=== PATIENT | female | born 1955 | race Two or more races ===

== ENCOUNTER 2021-08-20 10:12 | Inpatient (IN) | payer MEDICAID, OTHER ==
[~2021-08-20] VITALS: Ht 144.8 cm; Wt 55.0 kg
[2021-08-20] MEDS ORDERED: SODIUM CHLORIDE 0.9% 500 ML IVB ONE (10:45)
[2021-08-20] MEDS ORDERED: PANTOPRAZOLE 40 MG/10 ML VIAL INJ IV ONE (10:45)
[2021-08-20] MEDS ORDERED: MORPHINE SULFATE 4 MG/ML SYR/VIAL IV ONE (10:45)
[2021-08-20] MEDS ORDERED: ONDANSETRON HCL 4 MG/2 ML VIAL IV ONE (10:45)
[2021-08-20 11:25] LABS: Basophils # (auto) 0.1 10 ^3/uL (0-0.2); Basophils % (auto) 1.2 % (0.0-2.0); Eosinophils # (auto) 0 10 ^3/uL (0-0.8); Hemoglobin 11.2 g/dL (12.2-16.2); Monocytes # (auto) 0.4 10 ^3/uL (0-1.3); Red Cell Distribution Width 15.8 % (11.8-14.3)
[2021-08-20 11:27] LABS: Eosinophils % (auto) 0.3 % (0.0-7.0); Hematocrit 34.3 % (36.0-46.0); Lymphocytes # (auto) 2.4 10 ^3/uL (0.4-5.4); Lymphocytes % (auto) 20.9 % (10.0-50.0); Mean Corpuscular Hemoglobin 24.5 pg (28.0-32.0); Mean Corpuscular Hgb Conc. 32.5 g/dL (32.0-36.0); Mean Corpuscular Volume 75.5 fL (80.0-100.0); Monocytes % (auto) 3.5 % (0.0-12.0); Neutrophils # (auto) 8.4 10 ^3/uL (1.6-8.6); Neutrophils % (auto) 74.1 % (37.0-80.0); Nucleated Red Blood Cells % 0.2 %; Red Blood Cells 4.55 10^6/uL (4.0-5.20); White Blood Cell 11.3 10^3/uL (4.4-10.8)
[2021-08-20 11:30] LABS: INR 0.95 (0.9-1.15); Partial Thromboplastin Time 26.1 sec (23.6-33.0)
[2021-08-20 11:34] LABS: Potassium 3.9 mmol/L (3.5-5.1)
[2021-08-20 11:41] LABS: Urine Bacteria NONE SEEN /hpf (None Seen); Urine Blood Negative /uL (Negative); Urine Hyaline Cast FEW /lpf (0 - 2); Urine Mucus FEW (None Seen); Urine Specific Gravity 1.025 (1.001-1.035); Urine WBC 2 /hpf (0 - 5)
[2021-08-20 11:46] LABS: Albumin 3.7 g/dL (3.4-5.0); BUN/Creatinine Ratio 29.6; Bilirubin, Total 0.5 mg/dL (0.2-1.0); Calcium 9.2 mg/dL (8.5-10.1); Magnesium 2.2 mg/dL (1.6-2.6); Total Protein 7.6 g/dL (6.4-8.2)
[2021-08-20 11:54] LABS: Amylase 64 U/L (25-115); Lipase 169 U/L (73-393)
[2021-08-20] MEDS ORDERED: MORPHINE SULFATE 4 MG/ML SYR/VIAL IV PRN (14:15)
[2021-08-20] MEDS ORDERED: ACETAMINOPHEN 325 MG TAB PO PRN ×2 (14:15)
[2021-08-20] MEDS ORDERED: DEXTROSE (50%) 50ML SYRG IV PRN (14:15)
[2021-08-20] MEDS ORDERED: TEMAZEPAM 15 MG CAP PO PRN (14:15)
[2021-08-20] MEDS ORDERED: DOCUSATE SOD 100 MG CAP PO PRN (14:15)
[2021-08-20] MEDS ORDERED: GASTROGRAFIN 30 ML SOL ONE (14:28)
[2021-08-20] MEDS ORDERED: metroNIDAZOLE 500MG/100ML 100 ML IV ONE (14:30)
[2021-08-20] MEDS ORDERED: cefTRIAXone 1GM/50ML D5W 50 ML IV ONE (14:30)
[2021-08-20 14:51] LABS: Alcohol, Urine < 3.0 mg/dL (0-10); Amphetamine Screen, Urine NEGATIVE (NEGATIVE); Barbiturate Scree,Urine NEGATIVE (NEGATIVE); Benzodiazephine Screen, Urine NEGATIVE (NEGATIVE); Cannabinoid Screen, Urine NEGATIVE (NEGATIVE); Cocaine Screen, Urine NEGATIVE (NEGATIVE); Opiate Scree,Urine NEGATIVE (NEGATIVE); Phencyclidine Screen, Urine NEGATIVE (NEGATIVE)
[2021-08-20] MEDS: SODIUM CHLORIDE 0.9% 1,000 ML IV SCH ×2 (15:23→22:27)
[2021-08-20 15:31] LABS: Bilirubin, Direct 0.1 mg/dL (0-0.2)
[2021-08-20 15:34] LABS: Bilirubin, Total 0.5 mg/dL (0.2-1.0)
[2021-08-20 16:03] LABS: INR 0.94 (0.9-1.15)
[2021-08-20] MEDS: InsuLIN REG 1unit/0.01ml Soln (100units/ml) SC SCH ×2 (17:00→22:00)
[2021-08-20] MEDS: ACCU-CHEK COMFORT CURVE STRIP VI SCH ×2 (17:23→22:26)
[2021-08-20 18:05] VITALS: BP 143/90
[2021-08-20] MEDS: PROMETHAZINE HCL 25 MG/ML 1ML IV PRN (18:43)
[2021-08-20 22:00] VITALS: BP 140/74
[2021-08-20] MEDS: metroNIDAZOLE 500MG/100ML 100 ML IV SCH (22:25)
[2021-08-21 05:38] LABS: Basophils # (auto) 0 10 ^3/uL (0-0.2); Basophils % (auto) 0.7 % (0.0-2.0); Eosinophils # (auto) 0 10 ^3/uL (0-0.8); Hemoglobin 9.9 g/dL (12.2-16.2); Lymphocytes # (auto) 2.7 10 ^3/uL (0.4-5.4); Monocytes # (auto) 0.4 10 ^3/uL (0-1.3); Neutrophils # (auto) 2.1 10 ^3/uL (1.6-8.6); Nucleated Red Blood Cells % 0.1 %; Red Cell Distribution Width 15.7 % (11.8-14.3); White Blood Cell 5.3 10^3/uL (4.4-10.8)
[2021-08-21 05:41] LABS: Eosinophils % (auto) 0.8 % (0.0-7.0); Hematocrit 29.9 % (36.0-46.0); Lymphocytes % (auto) 50.6 % (10.0-50.0); Mean Corpuscular Hemoglobin 25.1 pg (28.0-32.0); Mean Corpuscular Hgb Conc. 33.1 g/dL (32.0-36.0); Mean Corpuscular Volume 75.9 fL (80.0-100.0); Monocytes % (auto) 7.7 % (0.0-12.0); Neutrophils % (auto) 40.2 % (37.0-80.0); Red Blood Cells 3.94 10^6/uL (4.0-5.20)
[2021-08-21 05:59] VITALS: BP 136/71
[2021-08-21] MEDS: metroNIDAZOLE 500MG/100ML 100 ML IV SCH ×3 (06:02→21:43)
[2021-08-21] MEDS: InsuLIN REG 1unit/0.01ml Soln (100units/ml) SC SCH ×4 (06:03→22:20)
[2021-08-21] MEDS: SODIUM CHLORIDE 0.9% 1,000 ML IV SCH (06:03)
[2021-08-21] MEDS: ACCU-CHEK COMFORT CURVE STRIP VI SCH ×4 (06:03→22:00)
[2021-08-21 06:05] LABS: Calcium 8.1 mg/dL (8.5-10.1); Potassium 3.6 mmol/L (3.5-5.1)
[2021-08-21 06:12] LABS: Albumin 2.8 g/dL (3.4-5.0); BUN/Creatinine Ratio 22.7; Bilirubin, Total 0.4 mg/dL (0.2-1.0)
[2021-08-21 09:00] VITALS: BP 138/75
[2021-08-21] MEDS: cefTRIAXone 1GM/50ML D5W 50 ML IV SCH (09:00)
[2021-08-21] MEDS ORDERED: ENOXAPARIN SOD 40 MG/0.4 ML SYRINGE SC SCH (10:00)
[2021-08-21] MEDS: PANTOPRAZOLE 40 MG TAB PO SCH ×2 (10:45→21:43)
[2021-08-21] MEDS ORDERED: GOLYTELY 4L KIT PO ONE (10:45)
[2021-08-21] MEDS: SUCRALFATE 1 GM/10 ML ORAL SUSP PO SCH ×3 (11:30→21:43)
[2021-08-21 13:00] VITALS: BP 152/83
[2021-08-21] MEDS: D5W/SOD CHL 0.45%/KCL 20MEQ 1,000 ML IV SCH (15:15)
[2021-08-21 16:41] VITALS: BP 172/87
[2021-08-21] MEDS ORDERED: [UNRECOGNIZED DRUG - CODE] OP (17:27)
[2021-08-21] MEDS ORDERED: BENA40TA8 PO (17:27)
[2021-08-21] MEDS ORDERED: LATA0.0020 OP (17:27)
[2021-08-21] MEDS ORDERED: METF-370 PO (17:36)
[2021-08-21] MEDS ORDERED: AMIT25TA12 PO (17:36)
[2021-08-21] MEDS ORDERED: METO5TAB2 PO (17:36)
[2021-08-21] MEDS ORDERED: GLIP2.5T28 PO (17:36)
[2021-08-21] MEDS ORDERED: HYDR50TA32 PO (17:36)
[2021-08-21] MEDS ORDERED: MECL25TA18 PO (17:36)
[2021-08-21] MEDS ORDERED: OMEP20TA PO (17:36)
[2021-08-21] MEDS ORDERED: AMLO-489 PO (17:36)
[2021-08-21] MEDS: HYDROcodone-ACET 5/325MG TAB PO PRN (21:44)
[2021-08-21 22:00] VITALS: BP 178/75
[2021-08-21] MEDS: LATANOPROST 0.005 % OPTH(EYE) SOL 2.5ML OP SCH (22:00)
[2021-08-22 05:00] VITALS: BP 143/76
[2021-08-22] MEDS: metroNIDAZOLE 500MG/100ML 100 ML IV SCH ×3 (06:08→22:17)
[2021-08-22] MEDS: SUCRALFATE 1 GM/10 ML ORAL SUSP PO SCH ×4 (06:11→22:50)
[2021-08-22] MEDS: InsuLIN REG 1unit/0.01ml Soln (100units/ml) SC SCH ×4 (06:46→22:00)
[2021-08-22] MEDS: ACCU-CHEK COMFORT CURVE STRIP VI SCH ×4 (06:48→22:17)
[2021-08-22] MEDS: TIMOLOL MAL 0.5% OPTH(EYE) SOL 5ML OP SCH (08:00)
[2021-08-22] MEDS ORDERED: LIDOCAINE VISCOUS 2% 15ML UD ONE (08:23)
[2021-08-22] MEDS ORDERED: diphenhdrAMINE HCL 50 MG/1 ML VL ONE (08:23)
[2021-08-22] MEDS ORDERED: SODIUM CHLORIDE LOCK 10 ML ONE (08:24)
[2021-08-22] MEDS: MIDAZOLAM HCL 5 MG/ML-1ML VIAL ONE ×3 (08:46→08:59)
[2021-08-22] MEDS: fentaNYL CITRATE 100 MCG/2 ML VL ONE ×3 (08:46→08:59)
[2021-08-22 09:00] VITALS: BP 153/74
[2021-08-22] MEDS: PROMETHAZINE HCL 25 MG/ML 1ML IV PRN (10:02)
[2021-08-22] MEDS ORDERED: amLODIPine BESYLATE 5 MG TAB PO ONE (10:30)
[2021-08-22] MEDS: PANTOPRAZOLE 40 MG TAB PO SCH ×2 (11:06→22:15)
[2021-08-22] MEDS: cefTRIAXone 1GM/50ML D5W 50 ML IV SCH (11:06)
[2021-08-22] MEDS: D5W/SOD CHL 0.45%/KCL 20MEQ 1,000 ML IV SCH ×2 (11:15→19:59)
[2021-08-22 12:51] VITALS: BP 155/77
[2021-08-22 17:00] VITALS: BP 145/66
[2021-08-22] MEDS: HYDROcodone-ACET 5/325MG TAB PO PRN (19:59)
[2021-08-22] MEDS ORDERED: ALPR0.5T7 PO (20:22)
[2021-08-22] MEDS ORDERED: ALPRAZolam 0.25 MG TAB PO ONE (20:45)
[2021-08-22 22:00] VITALS: BP 155/84
[2021-08-22] MEDS: LATANOPROST 0.005 % OPTH(EYE) SOL 2.5ML OP SCH (22:16)
[2021-08-23 05:00] VITALS: BP 130/72
[2021-08-23 05:28] LABS: Basophils # (auto) 0 10 ^3/uL (0-0.2); Eosinophils # (auto) 0.1 10 ^3/uL (0-0.8); Lymphocytes # (auto) 3.6 10 ^3/uL (0.4-5.4); Mean Corpuscular Hgb Conc. 33.5 g/dL (32.0-36.0); Nucleated Red Blood Cells % 0.1 %
[2021-08-23 05:30] LABS: Basophils % (auto) 0.7 % (0.0-2.0); Eosinophils % (auto) 2.1 % (0.0-7.0); Hematocrit 32.3 % (36.0-46.0); Hemoglobin 10.8 g/dL (12.2-16.2); Mean Corpuscular Hemoglobin 25.3 pg (28.0-32.0); Mean Corpuscular Volume 75.6 fL (80.0-100.0); Monocytes # (auto) 0.5 10 ^3/uL (0-1.3); Monocytes % (auto) 7.6 % (0.0-12.0); Neutrophils # (auto) 1.8 10 ^3/uL (1.6-8.6); Neutrophils % (auto) 30.4 % (37.0-80.0); Red Blood Cells 4.28 10^6/uL (4.0-5.20); Red Cell Distribution Width 15.7 % (11.8-14.3)
[2021-08-23 05:31] LABS: Lymphocytes % (auto) 59.2 % (10.0-50.0)
[2021-08-23] MEDS: metroNIDAZOLE 500MG/100ML 100 ML IV SCH ×2 (05:59→14:00)
[2021-08-23] MEDS: InsuLIN REG 1unit/0.01ml Soln (100units/ml) SC SCH ×2 (07:00→11:30)
[2021-08-23] MEDS: SUCRALFATE 1 GM/10 ML ORAL SUSP PO SCH ×2 (07:13→11:30)
[2021-08-23] MEDS: ACCU-CHEK COMFORT CURVE STRIP VI SCH ×2 (07:14→11:30)
[2021-08-23 09:00] VITALS: BP 146/61
[2021-08-23] MEDS: cefTRIAXone 1GM/50ML D5W 50 ML IV SCH (09:36)
[2021-08-23] MEDS: TIMOLOL MAL 0.5% OPTH(EYE) SOL 5ML OP SCH (09:36)
[2021-08-23] MEDS: PANTOPRAZOLE 40 MG TAB PO SCH (09:36)
[2021-08-23] MEDS ORDERED: amLODIPine BESYLATE 5 MG TAB PO SCH (10:00)
[2021-08-23 13:00] VITALS: BP 175/88
== END 2021-08-23 15:38 | disposition home or self-care (01) | DRG 241 ==
LOC: ER 10:12 → OVERFLOW 14:15 → WEST WING 17:38
PROVIDERS: ADMIT Registered Nurse; ATTEND Internal Medicine
PROC: 0DB68ZX Excision of Stomach, Via Natural or Artificial Opening Endoscopic, Diagnostic (ICD-10-PCS; principal; 2021-08-22 08:42)
PROC: 0DJD8ZZ Inspection of Lower Intestinal Tract, Via Natural or Artificial Opening Endoscopic (ICD-10-PCS; 2021-08-22 08:42)
DX: K29.70 Gastritis, unspecified, without bleeding (principal); E11.22 Type 2 diabetes mellitus with diabetic chronic kidney disease; K76.0 Fatty (change of) liver, not elsewhere classified; D50.9 Iron deficiency anemia, unspecified; D18.03 Hemangioma of intra-abdominal structures; I12.9 Hypertensive chronic kidney disease with stage 1 through stage 4 chronic kidney disease, or unspecified chronic kidney disease; K52.9 Noninfective gastroenteritis and colitis, unspecified; K57.30 Diverticulosis of large intestine without perforation or abscess without bleeding; R80.9 Proteinuria, unspecified; Z20.822 Contact with and (suspected) exposure to COVID-19; N18.31 Chronic kidney disease, stage 3a; N39.0 Urinary tract infection, site not specified; Z83.3 Family history of diabetes mellitus; Z85.038 Personal history of other malignant neoplasm of large intestine; Z87.19 Personal history of other diseases of the digestive system; Z90.710 Acquired absence of both cervix and uterus
CPT/HCPCS: 36415; 43235; 45378; 71045; 74176; 74177; 76705; 80053; 80061; 80307; 81001; 82150; 82247; 82248; 82378; 82962; 83036; 83690; 83735; 84132; 85025; 85610; 85730; 93005; 96361; 96374; 96375; C9113; G0378; J0696; J1815; J2250; J2405; J3490

== ENCOUNTER 2021-12-11 15:46 | Inpatient (IN) | payer MEDICAID, OTHER ==
[~2021-12-11] VITALS: Ht 142.2 cm; Wt 58.0 kg
[~2021-12-11 15:46] MED LIST: ALPR0.5T7 PO; AMLO-489 PO; BENA40TA8 PO; GLIP2.5T28 PO; HYDR50TA32 PO; LATA0.0020 OP; OMEP20TA PO; [UNRECOGNIZED DRUG - CODE] OP
[2021-12-11 16:31] LABS: Basophils # (auto) 0.1 10 ^3/uL (0-0.2); Eosinophils # (auto) 0.1 10 ^3/uL (0-0.8); Eosinophils % (auto) 0.9 % (0.0-7.0); Lymphocytes # (auto) 1.7 10 ^3/uL (0.4-5.4); Lymphocytes % (auto) 28.6 % (10.0-50.0); Mean Corpuscular Hemoglobin 29.5 pg (28.0-32.0); Mean Corpuscular Hgb Conc. 33.3 g/dL (32.0-36.0); Mean Corpuscular Volume 88.6 fL (80.0-100.0); Monocytes # (auto) 0.5 10 ^3/uL (0-1.3); Monocytes % (auto) 7.7 % (0.0-12.0); Neutrophils # (auto) 3.7 10 ^3/uL (1.6-8.6); Neutrophils % (auto) 61.8 % (37.0-80.0); Nucleated Red Blood Cells % 0.1 %; Red Blood Cells 5.08 10^6/uL (4.0-5.20); Red Cell Distribution Width 13.3 % (11.8-14.3)
[2021-12-11 16:48] LABS: Albumin 4.2 g/dL (3.4-5.0); Calcium 9.2 mg/dL (8.5-10.1); Magnesium 2.3 mg/dL (1.6-2.6); Potassium 3.5 mmol/L (3.5-5.1)
[2021-12-11 16:52] LABS: BUN/Creatinine Ratio 13.8; Bilirubin, Total 0.6 mg/dL (0.2-1.0); Total Protein 7.5 g/dL (6.4-8.2)
[2021-12-11] MEDS ORDERED: ASPirin 81 mg TAB PO ONE (20:00)
[2021-12-11 23:54] LABS: Urine Bacteria NONE SEEN /hpf (None Seen); Urine Blood Negative /uL (Negative); Urine Mucus FEW (None Seen); Urine Specific Gravity 1.038 (1.001-1.035); Urine WBC 11 /hpf (0 - 5)
[2021-12-12 02:00] VITALS: BP 108/70
[2021-12-12] MEDS ORDERED: ZOLPIDEM TARTRATE 5 MG TAB PO PRN (02:00)
[2021-12-12] MEDS ORDERED: NITROGLYCERIN 0.4 MG SL TAB SL PRN ×2 (02:00)
[2021-12-12] MEDS ORDERED: ACETAMINOPHEN 325 MG TAB PO PRN (02:00)
[2021-12-12] MEDS ORDERED: MORPHINE SULFATE INJ 2 MG/ml SYRG IV PRN (02:00)
[2021-12-12] MEDS ORDERED: ONDANSETRON HCL 4 MG/2 ML VIAL IV PRN (02:00)
[2021-12-12] MEDS: SODIUM CHLORIDE 0.9% 1,000 ML IV SCH ×2 (02:30→03:30)
[2021-12-12 07:38] LABS: Basophils # (auto) 0 10 ^3/uL (0-0.2); Basophils % (auto) 0.8 % (0.0-2.0); Eosinophils # (auto) 0.1 10 ^3/uL (0-0.8); Hemoglobin 14.9 g/dL (12.2-16.2); Lymphocytes # (auto) 1.3 10 ^3/uL (0.4-5.4); Lymphocytes % (auto) 22.4 % (10.0-50.0); Mean Corpuscular Hemoglobin 30.6 pg (28.0-32.0); Mean Corpuscular Hgb Conc. 34.7 g/dL (32.0-36.0); Mean Corpuscular Volume 88.2 fL (80.0-100.0); Monocytes # (auto) 0.5 10 ^3/uL (0-1.3); Monocytes % (auto) 8.3 % (0.0-12.0); Neutrophils % (auto) 67.5 % (37.0-80.0); Red Blood Cells 4.87 10^6/uL (4.0-5.20); Red Cell Distribution Width 13.3 % (11.8-14.3); White Blood Cell 5.9 10^3/uL (4.4-10.8)
[2021-12-12 07:41] LABS: BUN/Creatinine Ratio 12.3; Calcium 8.8 mg/dL (8.5-10.1); Magnesium 2.2 mg/dL (1.6-2.6); Potassium 3.5 mmol/L (3.5-5.1)
[2021-12-12 08:11] VITALS: BP 148/74
[2021-12-12] MEDS: LORazepam 0.5 MG TAB PO PRN ×2 (09:01→21:56)
[2021-12-12] MEDS: amLODIPine BESYLATE 5 MG TAB PO SCH (09:01)
[2021-12-12] MEDS: ASPirin 81 mg TAB PO SCH (09:01)
[2021-12-12] MEDS: DOCUSATE SOD 100 MG CAP PO SCH (09:02)
[2021-12-12] MEDS ORDERED: ENOXAPARIN SOD 60 MG/0.6 ML SYRINGE SC SCH (10:00)
[2021-12-12] MEDS ORDERED: CLOPIDOGREL BISULFATE 75 MG TAB PO SCH (10:00)
[2021-12-12] MEDS ORDERED: LISINOPRIL 10 MG TAB PO SCH (10:00)
[2021-12-12] MEDS: BENAZEPRIL HCL 10 MG TAB PO SCH (10:00)
[2021-12-12] MEDS: METOPROLOL TARTRATE 25 MG TAB PO SCH ×2 (10:00→21:57)
[2021-12-12] MEDS ORDERED: ATORVASTATIN 20 MG TAB PO SCH ×3 (10:45→22:00)
[2021-12-12] MEDS: PANTOPRAZOLE 40 MG TAB PO SCH (11:36)
[2021-12-12 12:00] VITALS: BP 120/60
[2021-12-12] MEDS ORDERED: DEXTROSE (50%) 50ML SYRG IV PRN (13:00)
[2021-12-12 17:00] VITALS: BP 129/44
[2021-12-12] MEDS: InsuLIN REG 1unit/0.01ml Soln (100units/ml) SC SCH ×2 (17:00→21:39)
[2021-12-12] MEDS: ACCU-CHEK COMFORT CURVE STRIP VI SCH ×2 (17:17→21:39)
[2021-12-12 20:00] VITALS: BP 108/70
[2021-12-12 22:00] VITALS: BP 108/70
[2021-12-13 05:00] VITALS: BP 120/56
[2021-12-13] MEDS: InsuLIN REG 1unit/0.01ml Soln (100units/ml) SC SCH ×2 (06:39→11:30)
[2021-12-13] MEDS: ACCU-CHEK COMFORT CURVE STRIP VI SCH ×2 (06:39→12:30)
[2021-12-13 08:00] VITALS: BP 122/68
[2021-12-13 09:00] VITALS: BP 99/42
[2021-12-13] MEDS: LORazepam 0.5 MG TAB PO PRN (09:12)
[2021-12-13] MEDS: ASPirin 81 mg TAB PO SCH (09:44)
[2021-12-13] MEDS: DOCUSATE SOD 100 MG CAP PO SCH (09:45)
[2021-12-13] MEDS: PANTOPRAZOLE 40 MG TAB PO SCH (09:45)
[2021-12-13] MEDS ORDERED: ENOXAPARIN SOD 40 MG/0.4 ML SYRINGE SC SCH (10:00)
[2021-12-13] MEDS: amLODIPine BESYLATE 5 MG TAB PO SCH (10:00)
[2021-12-13] MEDS: BENAZEPRIL HCL 10 MG TAB PO SCH (10:00)
[2021-12-13] MEDS: METOPROLOL TARTRATE 25 MG TAB PO SCH (10:00)
[2021-12-13] MEDS ORDERED: AML5T PO (12:42)
[2021-12-13] MEDS ORDERED: ASPI-325 PO (12:42)
[2021-12-13] MEDS ORDERED: MET25T PO (12:42)
[2021-12-13 13:00] VITALS: BP 105/47
[2021-12-13 15:37] VITALS: BP 99/42
[2021-12-13 17:00] VITALS: BP 95/57
== END 2021-12-13 17:50 | disposition home or self-care (01) | DRG 198 ==
LOC: ER 15:46 → TELE 12-12 01:50 → TELE-CENTR 12-12 07:42 → TELE 12-12 14:54 → TELE-CENTR 12-12 14:59
PROVIDERS: ADMIT Hospitalist; ATTEND Family Medicine
DX: I20.9 Angina pectoris, unspecified (principal); E11.65 Type 2 diabetes mellitus with hyperglycemia; E66.9 Obesity, unspecified; J98.11 Atelectasis; F41.9 Anxiety disorder, unspecified; Z20.822 Contact with and (suspected) exposure to COVID-19; R74.8 Abnormal levels of other serum enzymes; I10 Essential (primary) hypertension; Z79.899 Other long term (current) drug therapy; Z82.49 Family history of ischemic heart disease and other diseases of the circulatory system; Z83.3 Family history of diabetes mellitus; Z90.49 Acquired absence of other specified parts of digestive tract; Z90.710 Acquired absence of both cervix and uterus; Z87.19 Personal history of other diseases of the digestive system; Z79.82 Long term (current) use of aspirin; Z68.27 Body mass index [BMI] 27.0-27.9, adult; Z79.84 Long term (current) use of oral hypoglycemic drugs
CPT/HCPCS: 36415; 71045; 80048; 80053; 80061; 81001; 82962; 83735; 83880; 84484; 85025; 93005; 93306; 96360; G0378

== ENCOUNTER 2022-06-06 16:46 | Emergency (ER) | payer MEDICAID ==
[~2022-06-06] VITALS: Ht 147.3 cm; Wt 59.5 kg
[~2022-06-06 16:46] MED LIST changes: +AML5T PO; -AMLO-489 PO; +ASPI-325 PO; -BENA40TA8 PO; +MET25T PO
[2022-06-06 17:23] LABS: Basophils # (auto) 0.1 10 ^3/uL (0-0.2); Basophils % (auto) 1.3 % (0.0-2.0); Eosinophils # (auto) 0.1 10 ^3/uL (0-0.8); Eosinophils % (auto) 1.5 % (0.0-7.0); Hematocrit 43.1 % (36.0-46.0); Lymphocytes # (auto) 2.7 10 ^3/uL (0.4-5.4); Lymphocytes % (auto) 37.6 % (10.0-50.0); Mean Corpuscular Hemoglobin 31.3 pg (28.0-32.0); Mean Corpuscular Hgb Conc. 34.8 g/dL (32.0-36.0); Mean Corpuscular Volume 89.9 fL (80.0-100.0); Monocytes # (auto) 0.5 10 ^3/uL (0-1.3); Monocytes % (auto) 7.4 % (0.0-12.0); Neutrophils # (auto) 3.8 10 ^3/uL (1.6-8.6); Neutrophils % (auto) 52.2 % (37.0-80.0); Nucleated Red Blood Cells % 0.4 %; Red Cell Distribution Width 13.1 % (11.8-14.3); White Blood Cell 7.3 10^3/uL (4.4-10.8)
[2022-06-06 17:40] LABS: Albumin 4.5 g/dL (3.4-5.0); Calcium 9.7 mg/dL (8.5-10.1); Potassium 4.3 mmol/L (3.5-5.1)
[2022-06-06 17:43] LABS: BUN/Creatinine Ratio 15.6; Bilirubin, Total 0.5 mg/dL (0.2-1.0); Total Protein 7.4 g/dL (6.4-8.2)
[2022-06-06 17:58] LABS: Urine Bacteria NONE SEEN /hpf (None Seen); Urine Blood Negative /uL (Negative); Urine Specific Gravity 1.008 (1.001-1.035); Urine WBC 5 /hpf (0 - 5)
[2022-06-06 22:21] VITALS: BP 140/73
== END 2022-06-06 22:23 | disposition home or self-care (01) ==
LOC: ER 16:47
DX: R07.89 Other chest pain (principal); I10 Essential (primary) hypertension; R42 Dizziness and giddiness; Z90.49 Acquired absence of other specified parts of digestive tract; Z90.710 Acquired absence of both cervix and uterus
CPT/HCPCS: 36415; 71045; 80053; 81001; 84484; 85025; 93005

== ENCOUNTER 2023-02-20 11:43 | Emergency (ER) | payer MEDICAID ==
[~2023-02-20] VITALS: Ht 147.3 cm; Wt 59.1 kg
[~2023-02-20 11:43] MED LIST changes: -GLIP2.5T28 PO; +GLIP2.5T9 PO
[2023-02-20 11:54] VITALS: BP 140/76; PULSE 83; RESP 16; TEMP 98.2; O2SAT 98
[2023-02-20] MEDS ORDERED: IBUPROFEN 800 MG TAB PO ONE (14:45)
[2023-02-20] MEDS ORDERED: IBUP-1455 PO (14:54)
== END 2023-02-20 15:04 | disposition home or self-care (01) ==
LOC: ER 11:43
DX: S90.121A Contusion of right lesser toe(s) without damage to nail, initial encounter (principal); I10 Essential (primary) hypertension; Z90.49 Acquired absence of other specified parts of digestive tract; Z90.710 Acquired absence of both cervix and uterus; Z79.1 Long term (current) use of non-steroidal anti-inflammatories (NSAID); Z79.82 Long term (current) use of aspirin; Z79.899 Other long term (current) drug therapy; X58.XXXA Exposure to other specified factors, initial encounter; Y93.89 Activity, other specified; Y92.89 Other specified places as the place of occurrence of the external cause; Y99.8 Other external cause status
CPT/HCPCS: 73660

== ENCOUNTER → 2024-11-30 | Day surgery (SDC) | payer MEDICAID ==
[2024-11-28 13:47] LABS: Basophils # (auto) 0.1 10 ^3/uL (0-0.2); Eosinophils # (auto) 0.1 10 ^3/uL (0-0.8); Eosinophils % (auto) 0.8 % (0.0-7.0); Hematocrit 42.4 % (36.0-46.0); Hemoglobin 14.5 g/dL (12.2-16.2); Lymphocytes # (auto) 1.7 10 ^3/uL (0.4-5.4); Lymphocytes % (auto) 22.1 % (10.0-50.0); Mean Corpuscular Hemoglobin 30.8 pg (28.0-32.0); Mean Corpuscular Hgb Conc. 34.2 g/dL (32.0-36.0); Mean Corpuscular Volume 89.8 fL (80.0-100.0); Monocytes # (auto) 0.6 10 ^3/uL (0-1.3); Monocytes % (auto) 7.3 % (0.0-12.0); Neutrophils # (auto) 5.3 10 ^3/uL (1.6-8.6); Neutrophils % (auto) 68.8 % (37.0-80.0); Platelet Count (auto) 201 10^3/uL (140-450); Red Blood Cells 4.72 10^6/uL (4.0-5.20); Red Cell Distribution Width 13.7 % (11.8-14.3); White Blood Cell 7.8 10^3/uL (4.4-10.8)
[2024-11-28 14:02] LABS: INR 1.01 (0.9-1.15); Partial Thromboplastin Time 27.7 SEC (24.5-34.5); Prothrombin Time 10.7 sec (9.3-11.8)
[2024-11-28 14:10] LABS: Alanine Aminotransferase 19 U/L (7-40); Alkaline Phosphatase 90 U/L (46-116); Anion Gap 7 (5-15); Aspartate Aminotransferase 22 U/L (<34); BUN/Creatinine Ratio 16.5 (10.0-20.0); Bilirubin, Total 0.5 mg/dL (0.2-1.0); Blood Urea Nitrogen 13 mg/dL (9-23); Calcium 10.3 mg/dL (8.7-10.4); Carbon Dioxide 29 mmol/L (20-31); Chloride 105 mmol/L (98-107); Glucose 102 mg/dL (74-106); Potassium 4.3 mmol/L (3.5-5.1); Sodium 141 mmol/L (136-145); Total Protein 7.3 g/dL (5.7-8.2)
[2024-11-28 14:16] LABS: Albumin 4.9 g/dL (3.2-4.8)
[2024-11-28 19:12] LABS: Urine Bacteria None Seen /hpf (None Seen)
[2024-11-28 19:23] LABS: Urine Blood Negative /uL (Negative); Urine Clarity Clear (Clear); Urine Color Colorless (Yellow); Urine Protein, UAD Negative (Negative); Urine Specific Gravity 1.004 (1.001-1.035); Urine Squamous Epithelial Cell FEW /hpf (<5); Urine Urobilinogen Normal (Negative); Urine WBC < 1 /HPF (0-5); Urine pH 6.5 (5.0-9.0)
[~2024-11-30] VITALS: Ht 147.3 cm; Wt 53.1 kg
[~2024-11-30] MED LIST changes: +ALBUAER3 IN; -ALPR0.5T7 PO; -AML5T PO; +BACL20TA PO; +BECL80AE11 IN; +ESCI10TA PO; +FAMO20TA10 GT; -GLIP2.5T9 PO; -HYDR50TA32 PO; -LATA0.0020 OP; +MAGN400T40 OR; +PROPOFOL 10 MG/ML 20 ML IV ONE; +TRAZ-228 PO; -[UNRECOGNIZED DRUG - CODE] OP; +fentaNYL CITRATE 100 MCG/2 ML VL ONE
--- NOTE | 2024-11-30 09:11 | DVHHP2 ---
GI H&P Pre-Op Assessment Date: 11/30/24 Chief complaint: Epigastric pain HPI: per clinic note Past medical history: per clinic note Past surgical history: per clinic note Family history: per clinic note Physical exam: General: NAD, AAOX3 HEENT: PERRL, no scleral icterus, normal hearing, gums without lesions or b leeding, oropharynx clear without erythema or exudate. Neck: Supple without enlargement of the thyroid, or lymphadenopathy. Chest: Normal size and shape, no tenderness, lung rodas clear to auscultation and percussion, nonlabored breathing. Heart: RRR, no murmur Abdomen: non-distended, no tenderness to palpation, +BS, no hepatosplenomegaly Extremities: no edema Neurological: CN II-XII intact, sensation intact in all extremities, 5+ strength in all extremities Skin: No rashes, No jaundice Assessment: - Epigastric pain Plan: - EGD - Risks (bleeding, infection, perforation, reaction to sedation medications and cardiopulmonary arrest) and benefit of the procedure were explained to patient. Patient agrees to undergo the procedure. MYA CARRIZALES MD Nov 30, 2024 09:11
[2024-11-30 09:12] VITALS: PULSE 84; RESP 12; TEMP 97.5; O2SAT 92
--- NOTE | 2024-11-30 09:12 | DVHOP2 ---
Operative Report DATE OF OPERATION: 11/30/24 PROCEDURE: Upper Endoscopy. PREOPERATIVE INDICATION: The patient is a 64 -year-old female undergoing endoscopy for epigastric pain. POSTOPERATIVE DIAGNOSES: 1. Slight gastritis PROCEDURE PERFORMED BY: Joey Bright SCOPE: Olympus videoendoscope. ASA CLASS: 3 PREOPERATIVE MEDICATIONS: MAC with Dr White PROCEDURE IN DETAIL: After obtaining an informed consent, the patient was placed on left lateral decubitus position. The patient was then sedated with the above medications. A bite block was placed between her teeth. The endoscope was then passed through the oropharynx, into the esophagus, and through the stomach and pylorus up to the second and third part of the duodenum. The duodenum was normal appearance. There was slight gastritis. Gastric biopsies were obtained using cold forceps. The GE junction was normal appearance at 32 cm. The esophagus was normal in appearance. The endoscope was then withdrawn. The patient tolerated the procedure well without difficulty. COMPLICATIONS : None SPECIMENS: Gastric biopsies DISPOSITION: D/C to home PLAN: 1. Await for biopsy result 2. Continue with omeprazole JOEY BRIGHT MD Nov 30, 2024 09:12
--- NOTE | 2024-11-30 09:13 | DVHDS2 ---
Physician Discharge Progress N Final Diagnosis: Gastritis Operations or Procedures: Operations or Procedures EGD with biopsy Condition on Discharge: Good Disposition: Home Discharge Instructions: Diet: Regular Activity: No Restrictions, As Tolerated Medications: Resume with previous home medications Follow Up Care: Discharge Statement: "Patient was advised to return to the ER or call 911 if any headaches, dizziness, shortness of breath, chest pain, abdominal pain, bleeding, fevers, or worsening of medical condition. Patient was counseled about treatment plan, medications, possible side effects, patientverbalized understanding. All questions were answered to the best of my ability. This discharge took greater then 30 minutes in planning, reviewing documentation, counseling the patient, and discussing with other team members." MYA CARRIZALES MD Nov 30, 2024 09:13
[2024-11-30 09:37] VITALS: BP 124/89; PULSE 63; RESP 13; O2SAT 96
== END | disposition home or self-care (01) ==
LOC: GI 07:41
PROVIDERS: ATTEND Internal Medicine Gastroenterology
DX: R12 Heartburn (principal); K29.50 Unspecified chronic gastritis without bleeding; K59.00 Constipation, unspecified; Z79.899 Other long term (current) drug therapy; Z90.49 Acquired absence of other specified parts of digestive tract; Z98.890 Other specified postprocedural states; Z80.0 Family history of malignant neoplasm of digestive organs
CPT/HCPCS: 36415; 43239; 80053; 81001; 85025; 85610; 85730; 88305; 88312; 88342; J2704; J3010; J7030